=== PATIENT | male | born 1985 | race Caucasian/White ===

== ENCOUNTER 2020-08-31 18:20 | Emergency (ER) | payer OTHER ==
[~2020-08-31] VITALS: Ht 182.9 cm; Wt 89.3 kg
[2020-08-31 18:26] VITALS: BP 157/90
== END 2020-08-31 20:23 | disposition home or self-care (01) ==
LOC: ED 18:45
DX: Z20.818 Contact with and (suspected) exposure to other bacterial communicable diseases (principal)
CPT/HCPCS: 36415; 86622; 87040; 99283